=== PATIENT | female | born 1975 | race Caucasian/White ===

== ENCOUNTER 2022-01-09 07:51 | Outpatient (CLI) | payer OTHER | END 2022-01-09 08:09 | disposition home or self-care (01) | LOC: MAMO-SONO 07:51 | PROVIDERS: ATTEND Obstetrics & Gynecology Gynecology | DX: N60.12 Diffuse cystic mastopathy of left breast (principal); N60.11 Diffuse cystic mastopathy of right breast ==

== ENCOUNTER 2023-11-15 10:29 | Outpatient (CLI) | payer OTHER | END 2023-11-15 10:56 | disposition home or self-care (01) | LOC: MAMO-SONO 10:29 | DX: N60.19 Diffuse cystic mastopathy of unspecified breast (principal); R10.9 Unspecified abdominal pain ==

== ENCOUNTER 2025-09-22 15:04 | Outpatient (CLI) | payer OTHER | END 2025-09-22 15:12 | disposition home or self-care (01) | LOC: MAMO-SONO 15:04 | DX: R92.30 Dense breasts, unspecified (principal); Z12.31 Encounter for screening mammogram for malignant neoplasm of breast ==

== ENCOUNTER 2025-09-30 09:01 | Outpatient (CLI) | payer OTHER | END 2025-09-30 09:08 | disposition home or self-care (01) | LOC: SONOGRAMA 09:01 | DX: R10.20 Pelvic and perineal pain unspecified side (principal); N92.6 Irregular menstruation, unspecified ==